=== PATIENT | male | born 1975 | race Caucasian/White ===

== ENCOUNTER → 2021-08-02 08:39 | Outpatient (BNVA) | payer BC, SELFPAY | PROVIDERS: PCP Internal Medicine; Visit Provider Physician Assistant ==

== ENCOUNTER → 2021-08-05 08:11 | Outpatient (BNVA) | payer BC, SELFPAY | PROVIDERS: PCP Internal Medicine; Visit Provider Physician Assistant ==

== ENCOUNTER 2021-08-16 15:29 | Outpatient (REF) | payer BC, SELFPAY ==
--- NOTE | ~2021-08-16 | XR_ITS ---
EXAMINATION: XR CHEST CLINICAL INFORMATION: Obesity COMPARISON: None TECHNIQUE: 2 views of the chest were obtained. FINDINGS: The lungs are well expanded. There is no focal consolidation, edema, or effusion. No pneumothorax. The cardiomediastinal silhouette is within normal limits. No acute osseous abnormality. XR/XR chest 2V IMPRESSION: Clear lungs.
--- NOTE | 2021-08-16 15:40 | ECG_ITS ---
Test Reason : obesity Blood Pressure : / mmHG Vent. Rate : 099 BPM Atrial Rate : 099 BPM P-R Int : 166 ms QRS Dur : 088 ms QT Int : 360 ms P-R-T Axes : 056 -28 064 degrees QTc Int : 462 ms Normal sinus rhythm Left axis deviation Intra-ventricular conduction delay Possible Left atrial enlargement Borderline ECG No previous ECGs available Referred By: Joey Mccollum Electronically Signed By:LIDIA ROJAS MD
[2021-08-16 15:59] LABS: MANUAL DIFF FLAG NO
[2021-08-16 16:42] LABS: Basophils Percent Auto 0.4 % (0-2); Eosinophils Absolute Auto 0.1 X10*3/uL (0.0-0.4); Eosinophils Percent Auto 1.3 % (0-4); Hematocrit 42.9 % (42.0-52.0); Hemoglobin 14.5 g/dl (14.0-18.0); Imm Gran Abs Auto 0.03 X10*3/uL (0.00-0.03); Imm Gran Pct Auto 0.4 % (0.0-0.4); Lymphocytes Absolute Auto 1.7 X10*3/uL (1.2-4.9); Lymphocytes Percent Auto 21.3 % (20-40); Mean Corpuscular HGB Conc 33.8 g/dl (31.0-36.0); Mean Corpuscular Hemoglobin 32.8 pg (27.0-33.0); Mean Corpuscular Volume 97.1 fL (80.0-98.0); Mean Platelet Volume 11.2 fL (9.4-12.4); Monocytes Absolute Auto 0.6 X10*3/uL (0.1-1.2); Monocytes Percent Auto 8.3 % (2-11); Neutrophils Absolute Auto 5.3 x10*3/uL (2.0-8.3); Neutrophils Percent Auto 68.3 % (45-73); Platelet Count 259 X10*3/uL (160-400); Red Blood Count 4.42 X10*6/uL (4.60-5.80); Red Cell Distribution Width 13.4 % (11.0-16.0); White Blood Count 7.7 X10*3/uL (4.8-10.8)
[2021-08-16 16:44] LABS: Estimated Average Glucose 105 mg/dL; Hemoglobin A1c % 5.3 %
[2021-08-16 17:06] LABS: Alanine Aminotransferase 54 U/L (0-40); Albumin Level 4.7 g/dL (3.5-5.0); Alkaline Phosphatase 71 U/L (39-117); Anion Gap 18 (12-20); Aspartate Amino Transferase 43 U/L (5-37); Bilirubin Total 0.9 mg/dL (0.0-1.0); Blood Urea Nitrogen 14 mg/dL (9-16); C Reactive Protein 0.76 mg/dL (< or = 0.50); Calcium 9.5 mg/dL (8.4-10.2); Carbon Dioxide 23 mmol/L (22-29); Chloride 101 mmol/L (96-108); Cholesterol 235 mg/dL; Estimated Glomerular Filt Rate > 60; Glucose Random 107 mg/dL (60-115); HDL Cholesterol 79 mg/dL; Iron 157 mcg/dL (45-160); LDL Cholesterol Calculated 143 mg/dl; Percent Iron Saturation 38 % (15-50); Potassium 3.9 mmol/L (3.3-5.1); Sodium 138 mmol/L (135-145); Total Iron Binding Capacity 412 mcg/dL (228-428); Total Protein 7.4 g/dL (6.5-8.0); Triglycerides 68 mg/dL; Unsaturated Iron Binding 255 ug/dL
[2021-08-16 17:31] LABS: Ferritin 195 ng/mL (20-250); Insulin 15 uU/mL (2-29); TSH reflex Free T4 3.16 uIU/mL (0.32-4.0); Vitamin D 25-OH Total 41.7 ng/mL (>30)
[2021-08-16 17:36] LABS: Folate 13.6 ng/mL (> or = 4.0); Vitamin B12 451 pg/mL (200-900)
[2021-08-19 13:21] LABS: Calcium (PTHI) 9.5 mg/dL (8.6-10.3); PTHI 54 pg/mL (14-64)
[2021-08-20 15:51] LABS: Zinc 72 mcg/dL (60-130)
[2021-08-21 14:06] LABS: Vitamin A 70 mcg/dL (38-98)
[2021-08-22 11:21] LABS: Vitamin B1 11 nmol/L (8-30)
== END 2021-08-16 15:30 | disposition home or self-care (01) ==
LOC: HO.XRAY 15:29
PROVIDERS: Absent Provider Physician Assistant; PCP Internal Medicine; Visit Provider Physician Assistant Surgical
DX: E66.01 Morbid (severe) obesity due to excess calories (principal); K21.9 Gastro-esophageal reflux disease without esophagitis; R06.81 Apnea, not elsewhere classified; J45.909 Unspecified asthma, uncomplicated; I10 Essential (primary) hypertension
CPT/HCPCS: 36415; 71046; 80053; 80061; 82306; 82607; 82728; 82746; 83036; 83525; 83540; 83970; 84425; 84443; 84590; 84630; 85025; 86140; 93005

== ENCOUNTER → 2021-08-30 08:11 | Outpatient (BNVA) | payer BC, SELFPAY | PROVIDERS: PCP Internal Medicine; Visit Provider Physician Assistant ==

== ENCOUNTER → 2021-09-12 08:06 | Outpatient (BNVA) | payer BC, SELFPAY | PROVIDERS: PCP Internal Medicine; Visit Provider Dietitian, Registered | DX: E66.01 Morbid (severe) obesity due to excess calories (principal) | CPT/HCPCS: 97802 ==

== ENCOUNTER → 2021-09-17 09:28 | Outpatient (REF) | payer BC, SELFPAY ==
--- NOTE | ~2021-09-17 | FL_ITS ---
EXAMINATION: XR GI SERIES CLINICAL INFORMATION: Obesity. COMPARISON: None. TECHNIQUE: Upper GI was performed using thin and thick barium and effervescent granules. FINDINGS: Esophageal motility is normal. There is very mild gastroesophageal reflux. No hernia is seen. The stomach and duodenum are normal appearing. No fold thickening, mass, ulcer or stricture is seen. FLUOROSCOPY TIME: 0.5 minutes. DOSE AREA PRODUCT: 7.2 Gy-cm2. SAVED FLUOROSCOPIC IMAGES: 17. FL/FL upper GI series IMPRESSION: Mild gastroesophageal reflux. Otherwise unremarkable exam.
--- NOTE | ~2021-09-17 | US_ITS ---
EXAMINATION: US COMPLETE ABDOMEN WITH LIVER ELASTOGRAPHY CLINICAL INFORMATION: Obesity. COMPARISON: None. TECHNIQUE: Real-time imaging of the abdominal viscera. Noninvasive ultrasound liver fibrosis assessment is performed using Giovany ElastPQ point quantification shear wave elastography (pSWE) with a C5-2 MHz transducer. Multiple elastography samples are obtained. FINDINGS: PANCREAS: The pancreatic duct measures 0.35. The visualized pancreatic head and body are normal in appearance. The remainder of the pancreas is obscured from visualization by the overlying bowel gas. ABDOMINAL AORTA: The proximal, middle, and distal aortic segments are normal in caliber. INFERIOR VENA CAVA: Visualized portions are normal. LIVER: The liver demonstrates normal size, contour and mildly increased echogenicity. No focal lesion or intrahepatic biliary duct dilatation. The right lobe measures 16.7 cm in length. The left lobe measures 13.8 cm in length. Portal flow is hepatopedal. Shear wave liver elastography median stiffness is 1.81 m/s (reference: normal median stiffness is 1.3 m/s or less). IQR/median stiffness to assess sampling precision is 0.10 (reference: good quality data set is IQR/median stiffness of 0.15 or less). GALLBLADDER: Gallbladder wall thickness is 0.2 cm. The gallbladder is physiologically distended without evidence of stones, sludge, polyps, wall thickening or pericholecystic fluid. COMMON BILE DUCT: Normal in caliber measuring 0.7 cm in diameter. RIGHT KIDNEY: Normal. No hydronephrosis. No renal calculi or focal parenchymal lesions. The kidney measures 12.5 cm in maximum dimension. LEFT KIDNEY: Normal. No hydronephrosis. No renal calculi or focal parenchymal lesions. The kidney measures 12.6 cm in maximum dimension. SPLEEN: Spleen is borderline enlarged and measures 13.7 cm. FREE FLUID: None. US/US abdomen comp w elastography IMPRESSION: 1. Mild hepatic steatosis without focal lesion. Prominent pancreas measures 0.35 cm. No pancreatic lesions seen. Mild splenomegaly. 2. Liver elastography: Median liver stiffness 1.81, suggestive of cACLD. REFERENCE: Society of Radiologists in Ultrasound Liver Stiffness Thresholds (2019): LIVER STIFFNESS THRESHOLDS: *Liver Stiffness equal or less than 1.3 m/s: High probability of being normal. *Liver Stiffness less than 1.7 m/s: In the absence of other known clinical signs, rules out compensated advanced chronic liver disease. *Liver Stiffness 1.7-2.1 m/s: Suggestive of compensated advanced chronic liver disease but need further test for confirmation. *Liver Stiffness over 2.1 m/s: Rules in compensated advanced chronic liver disease. *Liver Stiffness over 2.4 m/s: Suggestive of clinically significant portal hypertension. QUALITY OF DATA SET: *IQR/Median value equal or less than 0.15 implies a quality data set. *IQR/Median value over 0.15 implies a poor quality data set. SIGNIFICANT CHANGE FROM PRIOR EXAM: Significant change if liver stiffness measurement is 10% or greater from prior exam. OTHER CONSIDERATIONS: The stage of liver fibrosis may be overestimated in the setting of acute hepatitis, liver inflammation, elevated liver function tests, hepatic vascular congestion, obstructive cholestasis, non-fasting state, and infiltrative diseases such as amyloidosis and lymphoma. In some patients with NAFLD, the liver stiffness thresholds for compensated advanced chronic liver disease may be lower. In causes other than viral hepatitis and NAFLD, liver stiffness thresholds are not well established.
[2021-09-20 14:42] LABS: H Pylori Breath Test Negative (Negative)
== END ==
LOC: HO.SL 09:28
PROVIDERS: PCP Internal Medicine; Visit Provider Physician Assistant
DX: Z01.818 Encounter for other preprocedural examination (principal); E66.01 Morbid (severe) obesity due to excess calories; K21.9 Gastro-esophageal reflux disease without esophagitis; J45.909 Unspecified asthma, uncomplicated; R06.81 Apnea, not elsewhere classified; I10 Essential (primary) hypertension
CPT/HCPCS: 36415; 74240; 76705; 76981; 83013; 95806

== ENCOUNTER → 2021-09-27 08:11 | Outpatient (BNVA) | payer BC, SELFPAY | PROVIDERS: PCP Internal Medicine; Visit Provider Physician Assistant ==

== ENCOUNTER → 2021-10-03 08:05 | Outpatient (BNVA) | payer BC, SELFPAY | PROVIDERS: PCP Internal Medicine; Referring Provider Physician Assistant; Visit Provider Dietitian, Registered | DX: E66.01 Morbid (severe) obesity due to excess calories (principal); Z68.43 Body mass index [BMI] 50.0-59.9, adult | CPT/HCPCS: 97803 ==

== ENCOUNTER → 2021-10-21 10:02 | Outpatient (BNVA) | payer BC, SELFPAY | PROVIDERS: PCP Internal Medicine; Visit Provider Physician Assistant | DX: E66.01 Morbid (severe) obesity due to excess calories (principal); R94.31 Abnormal electrocardiogram [ECG] [EKG] ==

== ENCOUNTER → 2021-10-24 08:14 | Outpatient (BNVA) | payer BC, SELFPAY | PROVIDERS: PCP Internal Medicine; Visit Provider Surgery ==

== ENCOUNTER → 2021-11-01 09:34 | Outpatient (REF) | payer BC, SELFPAY ==
--- NOTE | 2021-11-01 09:38 | CA_ITS ---
Transthoracic Echocardiogram Patient (Last, First, Middle): Derick Delong, Gender: Male Date of : 1975 Age: 46 Procedure Date: 11/01/2021 Procedure Type: Transthoracic Echocardiogram Location: OP Height: 172.72 cm Weight: 139.71 kg BSA: 2.46 m2 Heart Rate: bpm BP: 122 / 80 mmHg Volleyball Coach: NICOLE Referring MD: Alejandra Orellana PA-[place] Symptoms: R94.31 - Abnormal electrocardiogram [ECG] [EKG] Study Quality: Technically Difficult/contrast Conclusions: - Normal left ventricular size, thickness, and systolic function. - E/E prime ratio is between 8 and 15 consistent with indeterminate filling pressures. - Normal right ventricular cavity size and systolic function. - There is mild dilatation of the ascending aorta measuring 3.50 cm. Findings Procedure Information Contrast agent, definity, is being given per protocol without apparent complications. Left Ventricle Normal left ventricular size, thickness, and systolic function. The visually estimated ejection fraction is between 55-60%. Diastolic function is indeterminate on the basis of available data. Spectral Doppler is indicative of an impaired relaxation filling pattern. E/E prime ratio is between 8 and 15 consistent with indeterminate filling pressures. Right Ventricle Normal right ventricular cavity size and systolic function. Atria The left atrium is normal in size. Aortic Valve The aortic valve was not well visualized. There is no aortic valve stenosis. There is no aortic valve regurgitation. Mitral Valve There is moderate mitral annular calcification. There is no mitral valve regurgitation. There is no mitral valve stenosis. Pulmonic Valve The pulmonic valve is likely normal. Tricuspid Valve Normal tricuspid valve structure and function. There is trace tricuspid valve regurgitation. Tricuspid regurgitation envelope is inadequate for calculation of right ventricular systolic pressure. Normal right atrial pressure. Great Vessels There is mild dilatation of the ascending aorta measuring 3.50 cm. The visualized portions of the pulmonary artery and branches are normal. Venous The inferior vena cava is normal in size and collapses greater than 50% with inspiration. Pericardium/Pleural There is no evidence of pericardial effusion. Prior Study Comparison No prior study available for comparison. Measurements 2D Linear Measurements IVSd: 1.09 0.6-0.9/0.6-1.0 cm LVIDd: 4.78 3.9-5.3/4.2-5.9 cm LVIDd Index: 1.94 2.4-3.2/2.2-3.1 cm/m2 LVIDs: 2.62 2.0-3.6 cm LVPWd: 1.06 0.7-1.1 cm Ao Root: 3.70 2.1-3.5 cm LA Diam: 4.00 2.7-3.8/3.0-4.0 cm LAIDs Index: 1.63 1.5-2.3 cm/m2 LV Mass: 232.54 67-162/88-224 g LV Mass Index: 94.53 43-95/49-115 g/m2 LVOT Diam: 2.10 3.0+(-)1.3 cm 2D Systolic Function EF 4C: 67.20 >55% EF 2C: 62.30 >55% EF BiP: 62.50 >55% Mitral Valve MV Pk E: 1.23 MV PK A: 1.52 MV Decel Time: 243.00 E/A: 0.80 E'Lateral: 10.80 E'Medial: 8.49 E/E' Med: 14.50 E/E' Lat: 11.40 PHT: 71.00 MVA PHT: 3.10 Decel Jenkins: 5.06 Aortic Valve AoV Pk Evelio: 1.57 AoV Mn Evelio: 1.12 AoV VTI: 0.32 AoV Pk Grad: 10.00 Aov Mn Grad: 6.00 ORI Cont.VTI: 2.94 LVOT LVOT Pk Evelio: 1.35 LVOT Mn Evelio: 1.03 LVOT VTI: 0.27 LVOT Pk Grad: 7.00 LVOT Mn Grad: 5.00 LVOT Diam: 2.10 LVOT Area: 3.46 Diastolic Function MV Pk E: 1.23 MV Pk A: 1.52 E/A: 0.80 E'Medial: 8.49 E/E' Med: 14.50 E' Laterial: 10.80 E/E' Lat: 11.40 Right Ventricle TAPSE (mm): 26.40 TVS' Evelio: 19.10 Tricuspid Valve TR Pk Evelio: 1.49 TR Pk Grad: 9.00 Great Vessels Aorta Ao Root-2D: 3.70 2.0-3.7 cm Ao Asc: 3.50 2.1-3.4 cm Ao Arch: 3.10 Updated in Other Vendor System with Status of Final Joni Srivastava MD electronically signed on 11/02/2021 5:51:46 PM with status of Final
--- NOTE | 2021-11-01 09:38 | CA_ITS ---
Acquisition Time: 2021-11-01 10:34:56 Total Exercise Time: 00:05:01 Test Indications: ABN EKG, PREOP Medications: SEE CHART Protocol: LILY Max HR: 166 BPM 95% of Pred: 173 BPM Max BP: 168/088 mmHG Max Work Load: 7.0 METS Exercise stress test with exercise 5 min 1 sec of Lily protocol achievng 95% MPHR, 7 MET, with mild sob, no chest discomfort, without arrythmia, with normotensive response to exercise, without EKG changes meeting criteria for ischemia. Test reviewed with Dr Srivastava. Referred By: Alejandra Orellana Overread By: DEONDRE CABALLERO
== END ==
LOC: HO.CARD 09:34
PROVIDERS: Visit Provider Physician Assistant
DX: R94.31 Abnormal electrocardiogram [ECG] [EKG] (principal)
CPT/HCPCS: 93017; 93306; Q9957

== ENCOUNTER → 2021-11-11 07:57 | Outpatient (BNVA) | payer BC, SELFPAY | PROVIDERS: PCP Internal Medicine; Visit Provider Surgery ==

== ENCOUNTER → 2022-10-17 08:27 | Outpatient (BNVA) | payer BC, SELFPAY | PROVIDERS: PCP Internal Medicine; Visit Provider Surgery | DX: Z13.89 Encounter for screening for other disorder (principal) ==

== ENCOUNTER 2022-10-20 14:18 | Outpatient (REF) | payer BC, SELFPAY ==
[2022-10-20 14:50] LABS: COVID-19 Test Negative (Negative); IDNOW Serial# BCCEAD1C
== END 2022-10-20 14:19 | disposition home or self-care (01) ==
LOC: HO.LAB 14:18
PROVIDERS: Visit Provider Internal Medicine
DX: Z20.822 Contact with and (suspected) exposure to COVID-19 (principal)
CPT/HCPCS: 87635; C9803

== ENCOUNTER 2022-10-21 06:06 | Inpatient (IN) | payer BC, SELFPAY ==
[2022-10-16 10:58] VITALS: BMI 46.6
[2022-10-17 12:54] LABS: MANUAL DIFF FLAG NO
--- NOTE | 2022-10-17 12:59 | ECG_ITS ---
Test Reason : PREOP Blood Pressure : / mmHG Vent. Rate : 074 BPM Atrial Rate : 074 BPM P-R Int : 166 ms QRS Dur : 096 ms QT Int : 402 ms P-R-T Axes : 062 -31 030 degrees QTc Int : 446 ms Normal sinus rhythm Left axis deviation Abnormal ECG When compared with ECG of 16-AUG-2021 15:42, No significant change was found Referred By: Greyson Woods Electronically Signed By:POLLY COLIN
[2022-10-17 13:10] LABS: Basophils Percent Auto 0.5 % (0-2); Eosinophils Absolute Auto 0.1 X10*3/uL (0.0-0.4); Eosinophils Percent Auto 0.9 % (0-4); Hematocrit 43.2 % (42.0-52.0); Hemoglobin 14.3 g/dl (14.0-18.0); Imm Gran Abs Auto 0.02 X10*3/uL (0.00-0.03); Imm Gran Pct Auto 0.3 % (0.0-0.4); Lymphocytes Absolute Auto 1.3 X10*3/uL (1.2-4.9); Lymphocytes Percent Auto 16.8 % (20-40); Mean Corpuscular HGB Conc 33.1 g/dl (31.0-36.0); Mean Corpuscular Hemoglobin 31.5 pg (27.0-33.0); Mean Corpuscular Volume 95.2 fL (80.0-98.0); Mean Platelet Volume 10.5 fL (9.4-12.4); Monocytes Absolute Auto 0.6 X10*3/uL (0.1-1.2); Monocytes Percent Auto 7.1 % (2-11); Neutrophils Absolute Auto 5.9 x10*3/uL (2.0-8.3); Neutrophils Percent Auto 74.4 % (45-73); Platelet Count 255 X10*3/uL (160-400); Red Blood Count 4.54 X10*6/uL (4.60-5.80); Red Cell Distribution Width 14.1 % (11.0-16.0); White Blood Count 7.9 X10*3/uL (4.8-10.8)
[2022-10-17 13:14] LABS: Prothrombin Time 11.5 SEC (10.0-13.1)
[2022-10-17 13:17] LABS: Partial Thromboplastin Time 34.8 SEC (26.0-36.4)
[2022-10-17 13:29] LABS: Estimated Average Glucose 94 mg/dL; Hemoglobin A1c % 4.9 %
[2022-10-17 13:50] LABS: Alanine Aminotransferase 28 U/L (0-40); Albumin Level 4.9 g/dL (3.5-5.0); Alkaline Phosphatase 82 U/L (39-117); Anion Gap 16 (12-20); Aspartate Amino Transferase 38 U/L (5-37); Bilirubin Total 0.8 mg/dL (0.0-1.0); Blood Urea Nitrogen 15 mg/dL (9-16); C Reactive Protein 1.89 mg/dL (< or = 0.50); Calcium 10.5 mg/dL (8.4-10.2); Carbon Dioxide 23 mmol/L (22-29); Chloride 103 mmol/L (96-108); Cholesterol 231 mg/dL; Estimated Glomerular Filt Rate > 60; Glucose Random 115 mg/dL (60-115); HDL Cholesterol 78 mg/dL; LDL Cholesterol Calculated 136 mg/dl; Potassium 4.3 mmol/L (3.3-5.1); Sodium 138 mmol/L (135-145); Total Protein 7.7 g/dL (6.5-8.0); Triglycerides 88 mg/dL
[2022-10-17 14:08] LABS: Insulin 12 uU/mL (2-29); TSH reflex Free T4 2.05 uIU/mL (0.32-4.0)
--- NOTE | 2022-10-18 00:02 | MHC.SHP ---
Pre-Procedural Eval Section A Date of Service: 10/18/22 The patient is an INPATIENT: Yes The History & Physical has been completed within 30 days and I have reviewed it.: Yes Section B Chief Complaint: obesity Relevant Family History (Specify if Yes): No Relevant Social History: None Present Medications: None Medical History: No relevant PMH History of Previous Operations: No relevant previous surgery Allergies: Allergies Allergy/AdvReac Type Severity Reaction Status Date / Time No Known Allergies Allergy Verified 10/17/22 11:48 Review of Systems Sugical H&P ROS: Negative: Constitution, Cardiovascular, Respiratory, Neurological, Psychiatric, Hem-Onc, Allergic/Immunologic, Gastrointestinal, Genitourinary, Musculoskeletal, Integumentary, Endocrine and Eyes/Ears/Nose/Throat Exam Surgical H&P Exam: Normal: HEENT, Normal: Heart, Normal: Lungs, Normal: Extremities, Normal: Abdomen, Normal: Skin and Normal: Neurological Plan Diagnosis/Plan: Unchanged I have reviewed the history and physical and performed a pertinent physical examination on my patient. No changes have occurred unless specified. Time Spent With Patient Time: Total time managing care of this patient today ____ minutes.
--- NOTE | 2022-10-20 10:24 | HO.ANESPROP2 ---
Documented by User: Ellie Miller NP 10/20/22 10:29 HPI - Anesthesia Eval Consult details Narrative: 47yo M for Gastrectomy Sleeve,EGD,poss diaphragmatic hernia,poss ventral hernia,poss open, PMFSH Active Problems Active Problems: All Active Problems (Updated 10/15/22 @ 16:50 by Rosita Macias RN) Morbid obesity (Acute) GERD with apnea (Acute) Asthma (Acute) Arthritis (Acute) Gout (Acute) HTN (hypertension), benign (Acute) Obesity (Acute) MDD (major depressive disorder) (Acute) Abnormal ECG (Acute) Left axis deviation (Acute) Obstructive sleep apnea (Acute) Preprocedural examination (Acute) Deep vein thrombosis (Acute) Past Medical History Medical History Deep vein thrombosis Former smoker GERD (gastroesophageal reflux disease) History of cardiac murmur as a child History of seizure HTN (hypertension) Hx of concussion Family History Family History Mother No problems noted. Father Heart disease Brother No problems noted. Brother No problems noted. Brother Diabetes Surgical History Surgical History Hx of arthroscopy of left knee Hx of knee surgery Hx of tonsillectomy Social History Social History Are you a primary small animal caretaker to a significant other at home: No Do you presently have visiting nurse or other home services: No Alcohol intake: never Patient Tobacco Use Status: Former Tobacco user Quit Date: 2017 Tobacco use type: Cigarette Have you been hit, kicked, punched, or otherwise hurt by someone within the past year? If so, by whom?: No Are you DNR?: No Advance Directives: No Advance Directives Information Provided: Yes Advance Directives on File: No Recently lost weight without trying: No Nutrition Risks: No Nutritional Risk Poor oral hygiene: No Meds Allergies Allergy/AdvReac Type Severity Reaction Status Date / Time No Known Allergies Allergy Verified 10/17/22 11:48 Home Medications Medication Instructions Recorded Confirmed Last Taken Type allopurinol 300 mg tablet 300 mg PO BEDTIME 08/02/21 10/17/22 Unknown History ascorbic acid (vitamin C) 500 mg 500 mg PO DAILY 08/02/21 10/17/22 Unknown History capsule budesonide-formoterol HFA 160 inhalation DAILY 08/02/21 10/17/22 10/21/22 History mcg-4.5 mcg/actuation aerosol inhaler (Symbicort) cholecalciferol (vitamin D3) 125 125 mcg PO DAILY 08/02/21 10/17/22 Unknown History mcg (5,000 unit) capsule lisinopril 10 1 tab PO DAILY 08/02/21 10/17/22 10/21/22 History mg-hydrochlorothiazide 12.5 mg tablet magnesium 200 mg tablet 200 mg PO DAILY 08/02/21 10/17/22 Unknown History pen needle, diabetic 32 gauge x #50 ea 08/02/21 10/17/22 Unknown History 1/4 (Novofine 32) sertraline 100 mg tablet 100 mg PO DAILY 08/02/21 10/17/22 10/21/22 History thiamine HCl (vitamin B1) 500 mg 500 mg PO DAILY 08/02/21 10/17/22 Unknown History tablet vitamin E 200 unit capsule 200 unit PO DAILY 08/02/21 10/17/22 Unknown History naltrexone microspheres 380 mg 380 mg IM Q4W 08/28/22 10/17/22 Unknown History intramuscular suspension,extended release (Vivitrol) oxcarbazepine 300 mg tablet 300 mg PO BID 08/28/22 10/17/22 Unknown History fexofenadine 180 mg tablet 180 mg PO DAILY 10/15/22 10/17/22 Unknown History omeprazole 20 mg-sodium 1 cap PO DAILY 10/15/22 10/17/22 Unknown History bicarbonate 1.1 gram capsule naltrexone 50 mg tablet 1 tab PO DAILY 10/21/22 10/21/22 Unknown History topiramate 50 mg tablet 1 tab PO BEDTIME 10/21/22 10/21/22 Unknown History Exam Exam Date and Time: October 20, 2022 1024 Height,Weight and Vital Signs: Height 5 ft 7 in Weight 135.171 kg Pertinent Lab Results Pertinent Lab Results: Laboratory Tests 10/17/22 10/17/22 10/17/22 12:46 12:53 12:53 WBC 7.9 RBC 4.54 L Hgb 14.3 Hct 43.2 MCV 95.2 MCH 31.5 MCHC 33.1 RDW 14.1 Plt Count 255 MPV 10.5 Immature Gran % (Auto) 0.3 Neut % (Auto) 74.4 H Lymph % (Auto) 16.8 L [place] % (Auto) 7.1 Eos % (Auto) 0.9 Baso % (Auto) 0.5 Lymph # (Auto) 1.3 [place] # (Auto) 0.6 Eos # (Auto) 0.1 Baso # (Auto) 0.0 Abs Immat Gran (auto) 0.02 Absolute Neuts (auto) 5.9 Absolute Nucleated RBC 0.000 Nucleated RBC % (auto) 0.0 PT 11.5 INR 1.0 APTT 34.8 Sodium Potassium Chloride Carbon Dioxide Anion Gap BUN Creatinine Estim Creat Clear Calc Estimated GFR Random Glucose Estimat Average Glucose Hemoglobin A1c % Insulin Level Calcium Total Bilirubin AST ALT Alkaline Phosphatase C-Reactive Protein Total Protein Albumin Triglycerides Cholesterol LDL Cholesterol, Calc HDL Cholesterol TSH Blood Type A Positive Antibody Screen NEGATIVE 10/17/22 10/17/22 12:53 12:53 WBC RBC Hgb Hct MCV MCH MCHC RDW Plt Count MPV Immature Gran % (Auto) Neut % (Auto) Lymph % (Auto) [place] % (Auto) Eos % (Auto) Baso % (Auto) Lymph # (Auto) [place] # (Auto) Eos # (Auto) Baso # (Auto) Abs Immat Gran (auto) Absolute Neuts (auto) Absolute Nucleated RBC Nucleated RBC % (auto) PT INR APTT Sodium 138 Potassium 4.3 Chloride 103 Carbon Dioxide 23 Anion Gap 16 BUN 15 Creatinine 0.88 Estim Creat Clear Calc 136.0 Estimated GFR > 60 Random Glucose 115 Estimat Average Glucose 94 Hemoglobin A1c % 4.9 Insulin Level 12 Calcium 10.5 H D Total Bilirubin 0.8 AST 38 H ALT 28 Alkaline Phosphatase 82 C-Reactive Protein 1.89 H Total Protein 7.7 Albumin 4.9 Triglycerides 88 Cholesterol 231 LDL Cholesterol, Calc 136 HDL Cholesterol 78 TSH 2.05 Blood Type Antibody Screen Narrative Narrative: EKG 10/2022 Vent. Rate : 074 BPM ? ? Atrial Rate : 074 BPM ?? P-R Int : 166 ms? QRS Dur : 096 ms ? ? QT Int : 402 ms ? ? ? P-R-T Axes : 062 -31 030 degrees ?? QTc Int : 446 ms ? Normal sinus rhythm Left axis deviation Abnormal ECG When compared with ECG of 16-AUG-2021 15:42, No significant change was found ECHO 10/2021 Conclusions: - Normal left ventricular size, thickness, and systolic function. - E/E prime ratio is between 8 and 15 consistent with? indeterminate filling pressures. ? - Normal right ventricular cavity size and systolic function.? ? - There is mild dilatation of the ascending aorta measuring 3.50 cm. Stress 10/2021 Protocol: FESTUS ? Max HR: 166 BPM? 95% of? Pred: 173 BPM Max BP: 168/088 mmHG Max Work Load: 7.0 METS ? Exercise stress test with exercise 5 min 1 sec of Festus protocol achievng 95% ?MPHR, 7 MET, with mild sob, no chest discomfort, without arrythmia, with ?normotensive response to exercise, without EKG changes meeting criteria for ?ischemia. Test reviewed with Dr Srivastava. Documented by User: Portia Lopes MD 10/21/22 11:17 HPI - Anesthesia Eval Consult details Narrative: 47yo M for Gastrectomy Sleeve,EGD,poss diaphragmatic hernia,poss ventral hernia,poss open PMFSH Active Problems Active Problems: All Active Problems (Updated 10/21/22 @ 07:31 by Portia Lopes MD) Morbid obesity (Acute) GERD with apnea (Acute) Asthma (Acute) Arthritis (Acute) Gout (Acute) HTN (hypertension), benign (Acute) Obesity (Acute) MDD (major depressive disorder) (Acute) Abnormal ECG (Acute) Left axis deviation (Acute) Obstructive sleep apnea (Acute). Moderately severe. Diagnosed 09/2021. CPAP recommended. Patient states does not use CPAP machine because he does not have one Preprocedural examination (Acute) Deep vein thrombosis (Acute) ? H/o ETOH abuse- seizure 2019 attributed to ETOH Past Medical History Medical History Deep vein thrombosis Former smoker GERD (gastroesophageal reflux disease) History of cardiac murmur as a child History of seizure HTN (hypertension) Hx of concussion Family History Family History Mother No problems noted. Father Heart disease Brother No problems noted. Brother No problems noted. Brother Diabetes Family history of problems with anesthesia: No Surgical History Surgical History Hx of arthroscopy of left knee Hx of knee surgery Hx of tonsillectomy History of Problems with Anesthesia: No Social History Social History Are you a primary small animal caretaker to a significant other at home: No Do you presently have visiting nurse or other home services: No Alcohol intake: never Patient Tobacco Use Status: Former Tobacco user Quit Date: 2017 Tobacco use type: Cigarette Have you been hit, kicked, punched, or otherwise hurt by someone within the past year? If so, by whom?: No Are you DNR?: No Advance Directives: No Advance Directives Information Provided: Yes Advance Directives on File: No Recently lost weight without trying: No Nutrition Risks: No Nutritional Risk Poor oral hygiene: No Meds Allergies Allergy/AdvReac Type Severity Reaction Status Date / Time No Known Allergies Allergy Verified 10/17/22 11:48 Home Medications Medication Instructions Recorded Confirmed Last Taken Type allopurinol 300 mg tablet 300 mg PO BEDTIME 08/02/21 10/17/22 Unknown History ascorbic acid (vitamin C) 500 mg 500 mg PO DAILY 08/02/21 10/17/22 Unknown History capsule budesonide-formoterol HFA 160 inhalation DAILY 08/02/21 10/17/22 10/21/22 History mcg-4.5 mcg/actuation aerosol inhaler (Symbicort) cholecalciferol (vitamin D3) 125 125 mcg PO DAILY 08/02/21 10/17/22 Unknown History mcg (5,000 unit) capsule lisinopril 10 1 tab PO DAILY 08/02/21 10/17/22 10/21/22 History mg-hydrochlorothiazide 12.5 mg tablet magnesium 200 mg tablet 200 mg PO DAILY 08/02/21 10/17/22 Unknown History pen needle, diabetic 32 gauge x #50 ea 08/02/21 10/17/22 Unknown History 10/15 (Novofine 32) sertraline 100 mg tablet 100 mg PO DAILY 08/02/21 10/17/22 10/21/22 History thiamine HCl (vitamin B1) 500 mg 500 mg PO DAILY 08/02/21 10/17/22 Unknown History tablet vitamin E 200 unit capsule 200 unit PO DAILY 08/02/21 10/17/22 Unknown History naltrexone microspheres 380 mg 380 mg IM Q4W 08/28/22 10/17/22 Unknown History intramuscular suspension,extended release (Vivitrol) oxcarbazepine 300 mg tablet 300 mg PO BID 08/28/22 10/17/22 Unknown History fexofenadine 180 mg tablet 180 mg PO DAILY 10/15/22 10/17/22 Unknown History omeprazole 20 mg-sodium 1 cap PO DAILY 10/15/22 10/17/22 Unknown History bicarbonate 1.1 gram capsule naltrexone 50 mg tablet 1 tab PO DAILY 10/21/22 10/21/22 Unknown History topiramate 50 mg tablet 1 tab PO BEDTIME 10/21/22 10/21/22 Unknown History Exam Height,Weight and Vital Signs: Height 5 ft 7 in Weight 135.171 kg Vital Signs Temp Pulse Resp BP Pulse Ox O2 Del Method 97.0 F 67 18 125/68 99 10/21/22 06:20 10/21/22 06:20 10/21/22 06:20 10/21/22 06:20 10/21/22 06:20 10/21/22 06:20 Pertinent Lab Results Pertinent Lab Results: Laboratory Tests 10/17/22 10/17/22 10/17/22 12:46 12:53 12:53 WBC 7.9 RBC 4.54 L Hgb 14.3 Hct 43.2 MCV 95.2 MCH 31.5 MCHC 33.1 RDW 14.1 Plt Count 255 MPV 10.5 Immature Gran % (Auto) 0.3 Neut % (Auto) 74.4 H Lymph % (Auto) 16.8 L [place] % (Auto) 7.1 Eos % (Auto) 0.9 Baso % (Auto) 0.5 Lymph # (Auto) 1.3 [place] # (Auto) 0.6 Eos # (Auto) 0.1 Baso # (Auto) 0.0 Abs Immat Gran (auto) 0.02 Absolute Neuts (auto) 5.9 Absolute Nucleated RBC 0.000 Nucleated RBC % (auto) 0.0 PT 11.5 INR 1.0 APTT 34.8 Sodium Potassium Chloride Carbon Dioxide Anion Gap BUN Creatinine Estim Creat Clear Calc Estimated GFR Random Glucose Estimat Average Glucose Hemoglobin A1c % Insulin Level Calcium Total Bilirubin AST ALT Alkaline Phosphatase C-Reactive Protein Total Protein Albumin Triglycerides Cholesterol LDL Cholesterol, Calc HDL Cholesterol TSH Blood Type A Positive Antibody Screen NEGATIVE 10/17/22 10/17/22 12:53 12:53 WBC RBC Hgb Hct MCV MCH MCHC RDW Plt Count MPV Immature Gran % (Auto) Neut % (Auto) Lymph % (Auto) [place] % (Auto) Eos % (Auto) Baso % (Auto) Lymph # (Auto) [place] # (Auto) Eos # (Auto) Baso # (Auto) Abs Immat Gran (auto) Absolute Neuts (auto) Absolute Nucleated RBC Nucleated RBC % (auto) PT INR APTT Sodium 138 Potassium 4.3 Chloride 103 Carbon Dioxide 23 Anion Gap 16 BUN 15 Creatinine 0.88 Estim Creat Clear Calc 136.0 Estimated GFR > 60 Random Glucose 115 Estimat Average Glucose 94 Hemoglobin A1c % 4.9 Insulin Level 12 Calcium 10.5 H D Total Bilirubin 0.8 AST 38 H ALT 28 Alkaline Phosphatase 82 C-Reactive Protein 1.89 H Total Protein 7.7 Albumin 4.9 Triglycerides 88 Cholesterol 231 LDL Cholesterol, Calc 136 HDL Cholesterol 78 TSH 2.05 Blood Type Antibody Screen 10/21/22: Covid Negative Narrative Narrative: EKG 10/2022 Vent. Rate : 074 BPM ? ? Atrial Rate : 074 BPM ?? P-R Int : 166 ms? QRS Dur : 096 ms ? ? QT Int : 402 ms ? ? ? P-R-T Axes : 062 -31 030 degrees ?? QTc Int : 446 ms ? Normal sinus rhythm Left axis deviation Abnormal ECG When compared with ECG of 16-AUG-2021 15:42, No significant change was found ECHO 10/2021 Conclusions: - Normal left ventricular size, thickness, and systolic function. EF 55-60% - E/E prime ratio is between 8 and 15 consistent with? indeterminate filling pressures. ? - Normal right ventricular cavity size and systolic function.? ? - There is mild dilatation of the ascending aorta measuring 3.50 cm. Stress 10/2021 Protocol: FESTUS ? Max HR: 166 BPM? 95% of? Pred: 173 BPM Max BP: 168/088 mmHG Max Work Load: 7.0 METS ? Exercise stress test with exercise 5 min 1 sec of Festus protocol achievng 95% ?MPHR, 7 MET, with mild sob, no chest discomfort, without arrythmia, with ?normotensive response to exercise, without EKG changes meeting criteria for ?ischemia. Test reviewed with Dr Srivastava. Airway Mallampati Class: III TM Dist: >3cm Neck ROM: Full Loose/Missing/Broken Teeth: No (Denies loose, broken, missing teeth) Heart: RRR Lungs: CTAB Assessment and Plan Assessment Anesthesia Assessment: Anesthesia Plan Discussed and Chart Reviewed Final Anesthetic Review Family History of Problems with Anesthesia: No History of Problems with Anesthesia: No NPO: Yes ASA Class: III Final Preanesthetic Review: No Changes in Pt Med Stat, Meds/Allgs Chart Reviewed, Consent Obtained/Reviewed and Anes Risks/Benef Reviewed Patient Risk: Intermediate Procedure Risk: Intermediate Assessment/Block/Sedation in SS: Assess/Block/Sedation- Anesthetic Plan Anesthetic Plan: GA Disposition: Standard PACU and Inp. Admit - Standard Bed
[2022-10-21] VITALS (14 sets, daily range): BP systolic 120–161; BP diastolic 55–86; PULSE 67–89; RESP 16–18; TEMP 36.1–36.9; O2SAT 95–100
[2022-10-21] MEDS: Lactated Ringers 1,000 ML 999 ML IV (06:47)
--- NOTE | 2022-10-21 07:40 | PM.OP ---
Brief Operative Note Date of Service: 10/21/22 Pre-op diagnosis: Morbid obesity with comorbidities (see below) Post-op diagnosis: same Procedure: INITIAL PATIENT BMI ON PRESENTATION AT OUR OFFICE: 47.7 kg/m2 LAST BMI BEFORE SURGERY: 45 kg/m2 COMORBIDITIES: sleep apnea, VTE, gout, asthma, GERD, Depression, Anxiety, liver steatosis, liver fibrosis ?The patient presented to the Weight Management Program with significant obesity that was negatively impacting the patient's comorbidities as listed above.? The program is a phased program with a special focus on preoperative medical weight management to promote substantial weight loss and prepare the patients for the second phase of the program: bariatric surgery. The patient participated in an intensive weekly lifestyle ?intervention and exercise program during which the patient ?has lost between the initial office visit and the last preoperative visit 41.4lbs, or 12.2% of initial actual body weight. It was deemed appropriate for the patient to now have bariatric surgery. In light of the current Covid-19 pandemic and the well documented strong association of obesity and increased risk of worse outcomes if infected with Covid-19 (REFERENCES:https://pubmed.ncbi.nlm.nih.gov/11235089/,?https://pubmed.ncbi.nlm.nih.gov/05609395/), any delay in undergoing bariatric surgery may lead to the patient's worsening health condition and increased?risk of more severe Covid-19 disease if infected. In addition a recent?study from [facility] published in [facility] on 10/07/2021 ([email or web address]) found that, among patients with obesity, substantial weight loss achieved with surgery was associated with improved outcomes of COVID-19 infection. The findings suggest that obesity can be a modifiable risk factor for the severity of COVID-19 infection. In addition, the patient met the BMI-criteria for bariatric surgery based on the BMI on initial presentation. The patient should not be penalized for achieving such weight loss because ?it is not sustainable long-term without surgical intervention and it was achieved in preparation for bariatric surgery ?under my direction and based on my published research ([email or web address] and?[email or web address].soard.org/article/[email or web address])[email or web address]-X/pdf) ?that a 10% preoperative weight loss improves long-term weight loss after surgery and reduces perioperative complications.? Insurance carriers such as [facility] have endorsed my recommendations ?and have included in their policies criteria to include a 10% preoperative weight loss requirement. PROCEDURE: Esophago-gastroscopy, laparoscopic repair of incarcerated diaphragmatic hernia, laparoscopic sleeve gastrectomy and laparoscopic gastropexy INDICATIONS: This is a 47 year-old male who was electively scheduled for laparoscopic, possibly open sleeve gastrectomy. The risks and complications of the procedure were discussed with the patient in advance, particularly the possibility of ; pulmonary embolism; staple line leak; bleeding; GERD; cardiac, pulmonary, or renal complications; as well as long-term problems such as insufficient weight loss, vitamin deficiency, strictures, or ulcers. The patient understood all the risks, and was in agreement to proceed with surgery. DESCRIPTION OF PROCEDURE: After informed consent was obtained from the patient, the patient was given preoperative antibiotics, and was transferred to the operating room. After successful induction of general anesthesia, pneumatic compression devices were placed on both lower extremities. An upper endoscopy was performed next. The oropharynx and esophagus appeared to be within normal limits. There was a diaphragmatic hernia present of moderate size with incarcerated fat that was not reported at the preoperative upper GI. The stomach was entered. Then after all fluid and air were suctioned and the stomach was fully decompressed, the scope was withdrawn and secured in the mid esophagus. The patient was then prepped and draped in the usual sterile manner, and abdominal access was established at the right upper quadrant with the Liya technique. A 12 mm blunt port was inserted, and the abdomen was insufflated with CO2 to a pressure of 15 mmHg. Under direct visualization, additional ports were placed, specifically two 5 mm Versi-step ports to the left upper quadrant, and a 5 mm Versi-Step port to the right upper quadrant. 1% lidocaine plain was used to infiltrate all port sites as well as all fascia defects. Following that, the patient was placed in a steep reverse Trendelenburg position. An additional 5 mm port was placed to the right flank for the Mediflex retractor that was used to retract the left lobe of the liver. The gastro-esophageal fat pad was opened with the ultrasonic device (Thunderbeat, Olympus) and the anterior esophagus and hiatus were exposed. The angle of His was opened with the ultrasonic device the fundus of the stomach from any diaphragmatic and splenic attachments. I then opened the gastrocolic ligament between the transverse colon and the greater curvature of the stomach with the ultrasonic device to enter the lesser sac and facilitate the ligation of the short gastric vessels. I started at a mid-point along the greater curvature and using the Thunderbeat, all short gastric vessels were divided all the way to the angle of His until the left sheri was completely dissected at its entirety. I then divided the gastro-colic ligament distally to a distance of about 3-4 cm proximal to the pylorus. There was a significant-sized posterior hiatal hernia that was not readily visible. I continued dissecting along the hiatus toward the left sheri and the angle of His. I fully mobilized the fat pad that was incarcerated in the hernia. I then continued by dissecting even further into the posterior retro-esophageal space all the way to the angle of His. I continued to mobilize the esophagus into the mediastinum circumferentially. Both vagal nerves were seen and preserved. At that point, I was able to have at least 3 to 5 cm of esophagus into the abdomen.? After I completely mobilized the esophagus from both the left and right sheri and I had a good mobilization of the esophagus circumferentially, I closed the hernia defect with three interrupted #0 Surgidac sutures using the Endo Stitch device, two of which was placed posterior and one of which anterior to the esophagus. ? The stomach was then divided transversely with one Endo RENE-45 purple, 3 RENE-45 orange loads, two RENE-60 purple loads and one RENE-60 articulating orange loads using the AEON stapler and loads. Every effort was made that the gastric sleeve had a tubular shape and an even caliber throughout. Once the sleeve resection was completed, the staple line of the gastric sleeve was reinforced with Hemoclips. The resected stomach was retrieved without difficulty from the Liya port. A gastropexy was then performed in order to prevent postoperative GERD and partial gastric volvulus. Several interrupted 2.0 Surgidac sutures were placed between the sleeve's staple line and the previously divided greater omentum and gastro-colic ligament using the Endo-Stitch device. ?An upper endoscopy was performed. There was no narrowing at the GE junction. The scope was easily advanced all the way to the pylorus which was clearly visualized. There was no narrowing anywhere and the sleeve's caliber was even throughout. The sleeve's staple line was inspected and there was no evidence of ischemia, bleeding or dehiscence. At that point the gastroscope was withdrawn from the patient?s mouth while we were decompressing the bowel and the stomach from any remaining air. I looked into the lesser sac to see how the sleeve was situating and it was situating well. There was no bleeding from the staple line, spleen, or short gastric vessels. The Mediflex retractor was removed, and the undersurface of the liver was inspected and there was no bleeding. The patient was placed in supine position. I closed the fascial defect of the 12 mm port site with a figure of eight #1 Polysorb suture. Then 30cc of Ropivacaine plain with 10 mg of Dexamethasone were used to infiltrate the fascial closure as well as all skin incisions. A total of 7ml of Zynrelef was applied in the Liya port. At this point, the abdomen was deflated, all ports were removed under direct vision, and no bleeding was noted from any of the port sites. The skin incisions were irrigated with saline and were closed with 4-0 absorbable monofilament sutures. Steri-Strips and OpSites were used to cover all incisions. The patient was extubated and was transferred in stable condition to the recovery room for further care. I was present and performed all steinberg parts of the procedure. Esteban was the optometrist assistant. There were no residents to assist with this case. Luiz Woods MD, PhD, FACS Surgeon: Greyson Woods MD Anesthesia: GETA, local and other (TAP block and 7ml Zynrelef) Was an Silver Recovery Operator used for this Procedure?: No Silver Recovery Operator: Alejandra Orellana Estimated blood loss (mL): 10 IV fluids (mL): 3,000 Urine output (mL): 0 (No Piña to record) Pathology: other (Stomach) Condition: stable Disposition: PACU
--- NOTE | 2022-10-21 07:43 | PM.PNGS ---
Subjective Subjective Date of Service: 10/22/22 Interval history: Patient has mild incisional pain, but was able to ambulate and use the incentive spirometer. He is tolerating phase 1 bariatric diet Physical Exam Vital Signs: Vital Signs: Last Vital Signs Temp 97.0 F 10/21/22 06:20 Pulse 67 10/21/22 06:20 Resp 18 10/21/22 06:20 BP 125/68 10/21/22 06:20 Pulse Ox 99 10/21/22 06:20 O2 Del Method 10/21/22 06:20 BMI result Body Mass Index 46.6 GI: Inspection: Yes normal to inspection, Yes incision (clean, dry and intact) and Yes obesity Palpation (GI): Soft to palpation Extrem: Right lower extremity: normal to inspection (no calf tenderness) Left lower extremity: normal to inspection (no calf tenderness) Objective Data Active Medications Lactated Ringer's (Lr) 1,000 mls @ 100 mls/hr IVCONT .Q10H MONIKA Lactated Ringer's (Lr) 1,000 mls @ 999 mls/hr IV .Q1H1M MONIKA Stop: 10/21/22 08:15 Last Admin: 10/21/22 06:47 Dose: 999 mls/hr Documented By: LYNN Labs 10/17/22 12:53 10/17/22 12:53 Procedures Date of Service Date of Service: 10/22/22 Progress Note: A&P Assessment and plan (1) Morbid obesity: Status: Acute Assessment and Plan: s/p laparoscopic sleeve gastrectomy, repair of diaphragmatic hernia, and gastropexy Doing well Check am labs. If OK, will discharge home (2) GERD with apnea: Status: Acute (3) Asthma: Status: Acute (4) Arthritis: Status: Acute (5) Gout: Status: Acute (6) HTN (hypertension), benign: Status: Acute (7) Deep vein thrombosis: Status: Acute (8) Steatosis, liver: Status: Acute (9) Liver fibrosis: Status: Acute (10) Paraesophageal hernia: Status: Acute (11) S/P repair of paraesophageal hernia: Status: Acute (12) S/P laparoscopic sleeve gastrectomy: Status: Acute Time Spent With Patient Time: Total time managing care of this patient today ____ minutes. Quality Stroke Does the patient have a stroke diagnosis?: No VTE Prior VTE?: Yes VTE Risk Level:: Surgical - moderate VTE Device Contraindication: N/A - Device Ordered VTE Drug Contraindication: Treatment Not Indicated
--- NOTE | 2022-10-21 08:03 | PHA.MEDREC ---
Pharmacy Consult ? Medication Reconciliation Pharmacy has completed the medication reconciliation. Done by nursing Kobe
--- NOTE | 2022-10-21 10:47 | P.DS_ITS ---
DS: Providers Provider Date of Service: 10/22/22 Date of admission: 10/21/22 06:06 Primary care physician: Pranay Cheng MD DS: Diagnosis Discharge Diagnosis (1) Morbid obesity: Status: Acute (2) GERD with apnea: Status: Acute (3) Asthma: Status: Acute (4) Arthritis: Status: Acute (5) Gout: Status: Acute (6) HTN (hypertension), benign: Status: Acute (7) Deep vein thrombosis: Status: Acute (8) Steatosis, liver: Status: Acute (9) Liver fibrosis: Status: Acute DS: Summary Hospital Course Hospital Course: ADMITTING DIAGNOSIS: morbid obesity, hx DVT, GERD, HARPER, HTN DISCHARGE DIAGNOSIS: same, s/p laparoscopic sleeve gastrectomy and repair diaphragmatic hernia PAST SURGICAL HISTORY: knee surgery and tonsillectomy PROCEDURE: upper endoscopy, laparoscopic sleeve gastrectomy and repair of diaphragmatic hernia hernia DISCHARGE SUMMARY: History of Present Illness: The patient is a 47 year-old woman with a BMI of 53.1kg/m2 and associated co- morbidities as described above. The patient had extensive work-up, lost 7.4 lbs preoperatively and was electively scheduled for laparoscopic, possible open sleeve gastrectomy and gastropexy. Risks and complications of the surgery were discussed with the patient in advance, particularly the possibility of , pulmonary embolism, anastomotic leak, bleeding, bowel injury, GERD, cardiac, renal or pulmonary complications. The patient understood all the risks and was in agreement with the surgical plan. Hospital Course: The patient underwent an uneventful laparoscopic sleeve gastrectomy with gastropexy and repair of diaphragmatic hernia on the day of admission. Postoperatively, the patient was transferred to the surgical floor. The patient received IV Acetaminophen and IV dilaudid for pain control. Patient was started on bariatric phase 1 diet POD #0. On postoperative day one, the patient was feeling well without nausea, vomiting, fevers, or tachycardia. The patient had some mild incisional pain and the abdomen was soft. On the morning of postoperative day one, the patient was continued on 1 ounce of water or ice every half hour. During the day, the patient did fairly well, having some incisional pain, but able to ambulate adequately and to tolerate liquids well. Since the patient is doing well, we decided that the patient was ready to be discharged. The patient was given instructions to follow-up with me next week and to call my office for any fever over 101, persistent abdominal pain, nausea, vomiting, GERD, symptoms of DVT such as calf tenderness, or leg swelling, or pulmonary embolism such as chest pain or shortness of breath. The patient was also instructed to drink 40-60 ounces of liquids per day using the 1-ounce cups. The patient had been given prescriptions for Tylenol for pain, Zofran prn for nausea, and pantoprazole and carafate previously. The patient was encouraged to ambulate and use the incentive spirometer. The patient was allowed to shower, but no baths, and encouraged to stay active at home. All of these instructions were given to the patient personally. All questions were answered and the patient understood all instructions, the instructions were also given to the patient in print. Time Spent with Patient Time attestation: Total time managing care of this patient today ____ minutes. Discharge coordination time: Less than 30 minutes Quality: Safe Use of Opioids Does Pt have an Active Cancer Diagnosis on the Problem List?: No Quality: Stroke Does the patient have a stroke diagnosis?: No Physical Exam Vital Signs: Vital Signs: Last Vital Signs Temp 97.0 F 10/21/22 06:20 Pulse 67 10/21/22 06:20 Resp 18 10/21/22 06:20 BP 125/68 10/21/22 06:20 Pulse Ox 99 10/21/22 06:20 O2 Del Method 10/21/22 06:20 BMI result Body Mass Index 46.6 DS: Data Data Completed and Pending Pending studies at discharge: Pending at discharge 10/21/22 09:52 Surgical [PTH] Routine Discharge Plan Discharge Anticipated Discharge Date/Time: 10/22/22 10:00 Patient Disposition: Home, Self-Care Discharge Diagnosis: s/p sleeve gastrectomy and hiatal hernia repair Referrals: Pranay Cheng MD [Primary Care Provider] - 1 Week Discharge Medications: Continued sucralfate 100 mg/mL suspension 10 ml PO BID Qty: 400 2RF ondansetron HCl 4 mg tablet 4 mg PO Q12H Qty: 20 0RF Rx Instructions: Every 12 hours for nausea as needed omeprazole 40 mg capsule,delayed release(DR/EC) 40 mg PO DAILY Qty: 30 2RF fexofenadine 180 mg Tablet 180 mg PO DAILY naltrexone 50 mg tablet 1 tab PO DAILY topiramate 50 mg tablet 1 tab PO BEDTIME sertraline 100 mg tablet 100 mg PO DAILY allopurinol 300 mg tablet 300 mg PO BEDTIME budesonide-formoterol [Symbicort] 160-4.5 mcg/actuation HFA aerosol inhaler inhalation DAILY Vivitrol 380 mg suspension,extended rel recon 380 mg IM Q4W oxcarbazepine 300 mg tablet 300 mg PO BID Held lisinopril-hydrochlorothiazide 10-12.5 mg tablet 1 tab PO DAILY Hold Instructions: Discuss restart with Dr Woods magnesium 200 mg tablet 200 mg PO DAILY Hold Instructions: Discuss restart with Dr Woods Discontinued omeprazole-sodium bicarbonate 20-1.1 mg-gram Capsule 1 cap PO DAILY ascorbic acid (vitamin C) 500 mg capsule 500 mg PO DAILY thiamine HCl (vitamin B1) 500 mg tablet 500 mg PO DAILY cholecalciferol (vitamin D3) 125 mcg (5,000 unit) capsule 125 mcg PO DAILY vitamin E 200 unit capsule 200 unit PO DAILY No Action (DME) pen needle, diabetic [Novofine 32] 32 gauge x 1/4 needle See Rx Instructions subcut DAILY Qty: 50 Rx Instructions: As directed Discharge Orders: Discharge Order (Routine); Ordered 10/22/22 Ordered By: Greyson Woods Activity on Discharge: No heavy lifting Stand Alone Forms: Patient Portal Discharge page Care Plan Goals: weight loss Health Concerns: morbid obesity Plan of Treatment: No tub baths, sex or returning to work until discussed at first post op appointment. No exercise, alcohol, tobacco or illegal drug use. Continue to use incentive spirometer hourly while awake. Walk in home for 5- 10 minutes every 2 hours during the first week. Continue phase 1 diet today and start phase 2 diet tomorrow morning. Follow all instructions in the bariatric handbook and call with any questions. 1. Please call your doctor or come back to the emergency room should any new symptoms arise. 2. You will receive a courtesy call from [facility] 24-48 hours after discharge. 3. Activity: abstain from alcohol, practice limited stair climbing, no bending, no driving, no exercise, no illicit substances, no lifting, no sex, no tub bath, no work. 4. Diet: continue as discussed with bariatric team.. 5. Dressing Change/Wound Care: Do not change or remove surgical dressings unless they are wet or soiled. 6. Call your doctor if: - Your temperature exceeds 101.5 F - You experience excessive pain or swelling - You have an unexpected reaction to medication - You have excessive bleeding - You experience continued vomiting/nausea - Your incision begins to separate - Your incision shows signs of infection such as increased redness, swelling, excessive pain, heat, or drainage (light blood or clear fluid is normal) 7. General instructions: No lifting greater than 5 lbs for the next 4 weeks[address] driving within 24 hours of taking narcotic pain medications. If you do not move your bowels in the next 2 days, please take milk of magnesia over the counter. Please follow the post op diet and do not advance your diet until you are seen in the office in about 2 weeks. Please walk around your home every hour or two to prevent blood clots from forming in your legs. You do not need to wake from sleeping to walk. Please sleep in a bed or couch to prevent kinking at the hips and knees. Please take your incentive spirometer (your lung category development analyst) home with you and use it for the next few days to prevent pneumonias. You may shower, no hot tubs, baths or swimming pools. Please call the office with any questions or concerns such as increasing abdominal pain, fever, chills, shortness of breath, chest pain, leg pain or swelling, or redness or drainage from your incisions. Do not hesitate to contact the office with any questions at . The patient's medical history has been reviewed and they are considered low risk for post op DVT and therefore DVT prophylaxis is not considered necessary. Travel after surgery was reviewed. The patient has not disclosed any travel plans during the first 30 days after surgery and they have been advised that within the first 30 days after surgery any bus, plane, train or car travel over 2 hours in duration is contraindicated due to the possibility of developing blood clots from immobility. Any travel, needs to include periods of ambulation of 10 minutes in duration every 2 hours. The patient was instructed to discuss any plans for travel during this period with their bariatric surgeon. Assessment: stable, post op sleeve gastrectomy and paraesopageal hernia repair Discharge Date/Time: 10/22/22 09:13
[2022-10-21] MEDS: Famotidine/PF 20 MG/2 ML VIAL IVPUSH ×2 (10:59→19:27)
[2022-10-21 11:18] LABS: Hematocrit 37.9 % (42.0-52.0); Hemoglobin 12.3 g/dl (14.0-18.0)
[2022-10-21 11:34] LABS: Anion Gap 19 (12-20); Blood Urea Nitrogen 13 mg/dL (9-16); Carbon Dioxide 22 mmol/L (22-29); Chloride 103 mmol/L (96-108); Estimated Glomerular Filt Rate > 60; Glucose Random 162 mg/dL (60-115); Potassium 4.5 mmol/L (3.3-5.1); Sodium 139 mmol/L (135-145)
[2022-10-21] MEDS: Lactated Ringers 1,000 ML 100 ML IVCONT ×2 (11:52→19:27)
[2022-10-21] MEDS: ceFAZolin Sodium/Dextrose,Iso 2 GM/50 ML PIGGYBACK IV (13:05)
[2022-10-21] MEDS: Acetaminophen 1,000 MG/100 ML PIGGYBACK 16.7 MG IV ×2 (13:27→19:26)
[2022-10-21] MEDS: Metoclopramide HCl 10 MG/2 ML VIAL IVPUSH (13:27)
[2022-10-21] MEDS: ondansetron HCL 4 MG/2 ML VIAL IVPUSH (19:27)
[2022-10-21] MEDS: Topiramate 25 MG TABLET 50 MG PO (19:27)
[2022-10-21] MEDS: OXcarbazepine 300 MG TABLET PO (19:27)
[2022-10-21] MEDS: 0.9 % Sodium Chloride Flush 3 ML SYRINGE IVFLUSH (19:28)
[2022-10-22] MEDS: Acetaminophen 1,000 MG/100 ML PIGGYBACK 16.7 MG IV ×2 (01:00→06:09)
[2022-10-22] MEDS: Lactated Ringers 1,000 ML 100 ML IVCONT (03:14)
[2022-10-22] MEDS: ondansetron HCL 4 MG/2 ML VIAL IVPUSH (03:15)
[2022-10-22 03:16] VITALS: BP 109/53; PULSE 73; RESP 18; TEMP 36.7; O2SAT 96
[2022-10-22 06:12] LABS: MANUAL DIFF FLAG NO
[2022-10-22 06:17] LABS: Basophils Percent Auto 0.1 % (0-2); Eosinophils Percent Auto 0.1 % (0-4); Hematocrit 37.3 % (42.0-52.0); Hemoglobin 12.1 g/dl (14.0-18.0); Imm Gran Abs Auto 0.05 X10*3/uL (0.00-0.03); Imm Gran Pct Auto 0.5 % (0.0-0.4); Lymphocytes Absolute Auto 1.4 X10*3/uL (1.2-4.9); Mean Corpuscular HGB Conc 32.4 g/dl (31.0-36.0); Mean Corpuscular Hemoglobin 31.9 pg (27.0-33.0); Mean Corpuscular Volume 98.4 fL (80.0-98.0); Mean Platelet Volume 11.5 fL (9.4-12.4); Monocytes Absolute Auto 0.6 X10*3/uL (0.1-1.2); Monocytes Percent Auto 6.5 % (2-11); Neutrophils Absolute Auto 7.7 x10*3/uL (2.0-8.3); Neutrophils Percent Auto 78.8 % (45-73); Platelet Count 197 X10*3/uL (160-400); Red Blood Count 3.79 X10*6/uL (4.60-5.80); Red Cell Distribution Width 14.3 % (11.0-16.0); White Blood Count 9.7 X10*3/uL (4.8-10.8)
[2022-10-22 06:55] LABS: Anion Gap 15 (12-20); Blood Urea Nitrogen 8 mg/dL (9-16); Calcium 8.8 mg/dL (8.4-10.2); Carbon Dioxide 22 mmol/L (22-29); Chloride 104 mmol/L (96-108); Estimated Glomerular Filt Rate > 60; Glucose Random 97 mg/dL (60-115); Potassium 3.8 mmol/L (3.3-5.1); Sodium 137 mmol/L (135-145)
[2022-10-22 07:23] VITALS: BP 140/72; PULSE 80; RESP 24; TEMP 36.7; O2SAT 97
[2022-10-22] MEDS: Famotidine/PF 20 MG/2 ML VIAL IVPUSH (07:30)
[2022-10-22] MEDS: OXcarbazepine 300 MG TABLET PO (07:30)
[2022-10-22] MEDS: lisinopriL 10 MG TABLET PO (07:30)
--- NOTE | 2022-10-22 15:02 | HO.POSTANES ---
Post Anesthesia Evaluation Post Anesthesia Evaluation Vital Signs: Vital Signs Temp Pulse Resp BP Pulse Ox O2 Del Method 10/22/22 07:23 98.1 F 80 24 H 140/72 H 97 Room Air 10/22/22 03:16 98.0 F 73 18 109/53 L 96 Room Air Anesthesia: General Endotracheal-GETA Mental Status: Awake Pain Control: Satisfactory Nausea/Vomiting: None Hydration: Adequate Anesthesia-Related Issues: No Anes. Related Issues
== END 2022-10-22 09:13 | disposition home or self-care (01) | DRG 403 ==
LOC: HO.SSSA 10:47 → HO.S3 11:23
PROVIDERS: Physician Assistant; Admitting Provider Surgery; PCP Internal Medicine; Visit Provider Surgery
PROC: 0DB64Z3 Excision of Stomach, Percutaneous Endoscopic Approach, Vertical (ICD-10-PCS; CPT 43845; principal; 2022-10-21 07:30)
DX: E66.01 Morbid (severe) obesity due to excess calories (principal); K74.00 Hepatic fibrosis, unspecified; K44.0 Diaphragmatic hernia with obstruction, without gangrene; I10 Essential (primary) hypertension; K76.0 Fatty (change of) liver, not elsewhere classified; Z68.42 Body mass index [BMI] 45.0-49.9, adult; K21.9 Gastro-esophageal reflux disease without esophagitis; G47.33 Obstructive sleep apnea (adult) (pediatric); M10.9 Gout, unspecified; F41.9 Anxiety disorder, unspecified; F32.A Depression, unspecified; Z87.891 Personal history of nicotine dependence; Z86.718 Personal history of other venous thrombosis and embolism; Z79.899 Other long term (current) drug therapy
CPT/HCPCS: 36415; 80048; 80053; 80061; 83036; 83525; 84443; 85014; 85018; 85025; 85610; 85730; 86140; 86850; 86900; 86901; 88307; 88342; 93005; 94660; A4649; C9088; J0131; J0690; J1100; J1170; J2250; J2370; J2405; J2765; J2795; J3010

== ENCOUNTER → 2022-10-28 13:07 | Outpatient (BNVA) | payer BC, SELFPAY | PROVIDERS: PCP Internal Medicine; Visit Provider Physician Assistant Surgical | DX: Z98.84 Bariatric surgery status (principal) ==

== ENCOUNTER → 2022-11-24 11:36 | Outpatient (BNVA) | payer BC, SELFPAY | PROVIDERS: PCP Internal Medicine; Referring Provider Internal Medicine; Visit Provider Physician Assistant Surgical | DX: Z13.89 Encounter for screening for other disorder (principal) ==

== ENCOUNTER → 2022-12-08 13:39 | Outpatient (BNVA) | payer BC, SELFPAY | PROVIDERS: PCP Internal Medicine; Visit Provider Physician Assistant Surgical | DX: Z13.89 Encounter for screening for other disorder (principal) ==

== ENCOUNTER → 2023-02-06 11:33 | Outpatient (BNVA) | payer BC, SELFPAY | PROVIDERS: PCP Internal Medicine; Visit Provider Physician Assistant Surgical | DX: Z13.89 Encounter for screening for other disorder (principal) ==

== ENCOUNTER → 2023-03-20 13:13 | Outpatient (BNVA) | payer BC, SELFPAY | PROVIDERS: PCP Internal Medicine; Visit Provider Physician Assistant Surgical | DX: Z98.84 Bariatric surgery status (principal) ==

== ENCOUNTER 2023-07-09 13:39 | Outpatient (AMB) | payer BC, SELFPAY ==
--- NOTE | 2023-07-09 13:42 | A.OFFVIS_ITS ---
Intake VS Expanded 07/09/23 13:47 Height 5 ft 7 in Weight 249 lb 9.6 oz BMI 39.1 BP 143/89 H Blood Pressure Location Rt brachial Blood Pressure Position Sitting Pulse 109 H Pulse Source Pulse Oximeter Temp 98.0 F Temperature Source Temporal Artery Scan Pulse Oximetry 95 Oxygen Delivery Method Room Air Body Fat 89.6 Body Fat Percentage 35.9 Free Fat Mass 160.0 Muscle Mass 152.2 Visceral Mass 21.0 Water Mass 116.2 BMR 2,193 Intake Visit Reasons: (ov) PO LSG 10/21/22 Allergies No Known Allergies Allergy (Verified 07/09/23 13:45) Medication List - Last Reconciled 07/09/23 by MYA Rivera allopurinol 300 mg PO BEDTIME apixaban (Eliquis DVT-PE Treat 30D Start) 5 mg PO BID budesonide-formoterol 160-4.5 mcg/actuation (Symbicort) inhalation DAILY docusate sodium (Colace) 100 mg PO DAILY fexofenadine 180 mg PO DAILY magnesium 200 mg PO DAILY naltrexone 1 tab PO DAILY naltrexone microspheres ER (Vivitrol) 380 mg IM Q4W omeprazole 40 mg PO DAILY PRN oxcarbazepine 300 mg PO BID pen needle, diabetic (Novofine 32) As directed sertraline 100 mg PO DAILY HPI HPI Comments History of Present Illness Details This?is a?48?yo male who is s/p LSG 10/21/2022. Presents for 8 month post op visit. Weight at last visit on 03/20/2023 was 257 pounds with a BMI of 40.2, weight today is 249.6 pounds, representing a 7.4 pound weight loss with a BMI today of 39.1.? No complaints of nausea, emesis, abdominal pain or reflux, or constipation. Remains on eliquis, off BP meds. Had hip surgery last month, doing well recovering. Present meal plan includes: bars and solid food, no longer using shakes taking MVI Exercise routine includes: doing PT twice a week for hip, able to walk much more comfortably, increasing activity as he recovers, has a stationary bike at home [facility] Medical History (Updated 11/19/22 @ 20:01 by Greyson Woods MD) History of cardiac murmur as a child Hx of concussion History of seizure Former smoker GERD (gastroesophageal reflux disease) HTN (hypertension) Deep vein thrombosis Gout Surgical History Hx of arthroscopy of left knee Hx of knee surgery Hx of tonsillectomy S/P laparoscopic sleeve gastrectomy Family History Mother No problems noted. Father Heart disease Brother No problems noted. Brother No problems noted. Brother Diabetes Social History (Updated 02/06/23 @ 11:39 by Ermelinda Cano CMA) Are you a primary family day carer to a significant other at home: No Do you presently have visiting nurse or other home services: No Alcohol intake: current Alcohol intake frequency: a few times a week Patient Tobacco Use Status: Former Tobacco user Quit Date: 2017 Tobacco use type: Cigarette Physical Exam Const General: cooperative, comfortable and no acute distress Orientation/consciousness: patient oriented x3 GI Other: soft, nontender, nondistended, incisions well healed, no hernia, no masses Neuro General: patient oriented x3 Assessment & Plan Assessment & Plan (1) S/P laparoscopic sleeve gastrectomy: Comment: 10/21/22 Greyson Woods MD Code(s): Z98.84 - Bariatric surgery status (2) Obesity: Code(s): E66.9 - Obesity, unspecified Plan Pt reminded to have labs drawn. Discussed requirements for skin removal surgery. Discussed protein goal of 100g/day. If pt does not want to use shakes would recommend eating 5x/day with combination of 20g protein bars and small meals 2- 3oz protein each. He will continue to increase exercise as he recovers from hip surgery. RTC in October for annual. Patient is obese and is not considered stable at this time. I spent a total of 30 minutes reviewing/updating records, examining the patient and counseling the patient on weight management as detailed above. Coding Level of Care Code Est Pt Level 4 (34799) Diagnoses S/P laparoscopic sleeve gastrectomy Z98.84 Obesity E66.9
--- NOTE | 2023-07-09 13:43 | A.OFFVIS_ITS ---
Intake VS Expanded 07/09/23 13:47 Height 5 ft 7 in Weight 249 lb 9.6 oz BMI 39.1 BP 143/89 H Blood Pressure Location Rt brachial Blood Pressure Position Sitting Pulse 109 H Pulse Source Pulse Oximeter Temp 98.0 F Temperature Source Temporal Artery Scan Pulse Oximetry 95 Oxygen Delivery Method Room Air Body Fat 89.6 Body Fat Percentage 35.9 Free Fat Mass 160.0 Muscle Mass 152.2 Visceral Mass 21.0 Water Mass 116.2 BMR 2,193 Intake Visit Reasons: (ov) PO LSG 10/21/22 Allergies No Known Allergies Allergy (Verified 07/09/23 13:45) PFSH Medical History (Updated 11/19/22 @ 20:01 by Greyson Woods MD) History of cardiac murmur as a child Hx of concussion History of seizure Former smoker GERD (gastroesophageal reflux disease) HTN (hypertension) Deep vein thrombosis Gout Surgical History (Updated 07/09/23 @ 13:46 by Ermelinda Cano CMA) Hx of bilateral hip replacements S/P laparoscopic sleeve gastrectomy Hx of tonsillectomy Hx of arthroscopy of left knee Hx of knee surgery Family History Mother No problems noted. Father Heart disease Brother No problems noted. Brother No problems noted. Brother Diabetes Social History Are you a primary manager critical care to a significant other at home: No Do you presently have visiting nurse or other home services: No Alcohol intake: current Alcohol intake frequency: a few times a week Patient Tobacco Use Status: Former Tobacco user Quit Date: 2017 Tobacco use type: Cigarette Coding
[2023-07-09 13:47] VITALS: BP 143/89; PULSE 109; TEMP 36.7; O2SAT 95; BMI 39.1
== END 2023-07-09 14:08 | disposition home or self-care (01) ==
PROVIDERS: PCP Internal Medicine; Visit Provider Physician Assistant Surgical
DX: E66.9 Obesity, unspecified (principal); Z68.39 Body mass index [BMI] 39.0-39.9, adult; Z90.3 Acquired absence of stomach [part of]; Z98.84 Bariatric surgery status
CPT/HCPCS: 99214

== ENCOUNTER → 2023-07-09 13:39 | Outpatient (BNVA) | payer BC, SELFPAY | PROVIDERS: PCP Internal Medicine; Visit Provider Physician Assistant Surgical ==